=== PATIENT | male | born 1950 | race Caucasian/White ===

== ENCOUNTER 2017-05-09 05:55 | Day surgery (SDC) | payer OTHER ==
[~2017-05-09] VITALS: Ht 160 cm; Wt 63.6 kg
[~2017-05-09 05:55] MED LIST: LANT3I SC; MECL12.5 PO; ONDA4TAB35 PO; TAMS-14 PO
[2017-05-09 07:38] VITALS: Ht 160 cm; Wt 63.6 kg
[2017-05-09] MEDS ORDERED: RANI-428 PO (07:51)
[2017-05-09 07:55] VITALS: BP 178/87; PULSE 86; RESP 21
[2017-05-09] MEDS ORDERED: HTN MED PO (07:59)
[2017-05-09] MEDS ORDERED: GLIPIZIDE PO (07:59)
[2017-05-09] MEDS ORDERED: PROPOFOL 60 ML ONE (08:03)
[2017-05-09] MEDS ORDERED: LIDOCAINE 2% (SDV) 5 ML INJ ONE (08:03)
[2017-05-09 09:07] VITALS: BP 134/73; RESP 20
--- NOTE | 2017-05-09 09:39 | GILP ---
DATE OF PROCEDURE: 05/09/2017 PROCEDURE: Esophagogastroduodenoscopy. PREOPERATIVE DIAGNOSIS: The patient presenting with history of chronic abdominal discomfort, period ic vomiting, rule out peptic ulcer disease, esophagitis. POSTOPERATIVE DIAGNOSES: Multiple distal esophageal erosions noted, multiple gastric erosions noted as well. Biopsies were done as follows. DESCRIPTION OF PROCEDURE: After informed written consent was obtained, the patient was asked to lie on the left lateral side. Intravenous anesthesia was given by anesthesiologist, Dr. Roca. When th e patient became somnolent, the Olympus video upper endoscope was introduced into the oropharynx, th en into the esophagus. Multiple linear erosions were noted starting from the GE junction. These we re measuring at least 2 to 3 cm in length. Multiple biopsies were obtained to rule out De Luna's es ophagus, rule out opportunistic infections. Scope at this time was advanced into the stomach. Stom ach showed evidence of several areas of erosions and erythema. Biopsy was done from the antrum, the lesser curvature, and the fundus to rule out H. pylori infection. The duodenum appeared perfectly normal up to the end of the third portion. Endoscope at this time was withdrawn. As mentioned, bio psy was done for Helicobacter pylori infection from the antrum, lesser curvature, and the fundus, an d the procedure was terminated. PLAN: Recommend Dexilant 60 mg a day for 8 weeks and then reevaluate. Dictated By: JUANCHO PEREIRA/GILBERT Conf#: [id number] DID#: [id number]
--- NOTE | 2017-05-09 09:42 | GILP ---
DATE OF PROCEDURE: 05/09/2017 PROCEDURE: Colonoscopy. PREOPERATIVE DIAGNOSIS: Screening colonoscopy to rule out colon polyps. POSTOPERATIVE DIAGNOSES: 1. A 3 mm polyp noted in a fold at 15 cm from the anus. This was removed with the help of a cold b iopsy forceps. 2. Minimal external hemorrhoids. DESCRIPTION OF PROCEDURE: After the informed written consent was obtained, the patient was asked to lie on the left lateral side. Intravenous anesthesia was given by anesthesiologist, Dr. Roca. Whe n the patient became somnolent, the Olympus video colonoscope was introduced into the rectum, and sc ope was advanced all the way to the cecum. Entire colon appeared normal; however, at 15 cm from the anus, there was a 3 to 4 mm polyp noted in a fold. This was removed with the help of a cold biopsy forceps. Scope at this time was withdrawn and on the way out, no additional abnormalities detected . Retroflexion showed no internal hemorrhoids. When the scope was withdrawn, minimal external hemo rrhoids were noted, and the procedure was terminated. PLAN: Recommend wait for the pathology report. Dictated By: JUANCHO PEREIRA/NTS Conf#: [id number] DID#: [id number] CC: Deepti Elizabeth MD;*EndCC*
== END 2017-05-09 12:45 | disposition home or self-care (01) ==
LOC: GIL 05:55
PROVIDERS: ATTEND Internal Medicine Gastroenterology
DX: Z12.11 Encounter for screening for malignant neoplasm of colon (principal); K21.0 Gastro-esophageal reflux disease with esophagitis; K63.5 Polyp of colon; K64.8 Other hemorrhoids; E11.9 Type 2 diabetes mellitus without complications; I10 Essential (primary) hypertension
CPT/HCPCS: 43239; 45378; 82962; 88305; 88312; 88313; Z7610